=== PATIENT | male | born 1985 | race Caucasian/White ===

== ENCOUNTER 2017-10-22 12:05 | Emergency (ER) | payer OTHER ==
[~2017-10-22] VITALS: Ht 172.7 cm; Wt 81.7 kg
[~2017-10-22 12:05] MED LIST: ACETAMINOPHEN-1 EAC1 PO; CIPROFLOXACIN500 M1 PO; EC-NAPROSYN500 MG PO; ERY-TAB500 MG PO; NOHOMEMEDICATIONS; PHENERGAN 25 MG25 MG PO; VICODIN 5-5001 EACH PO
[2017-10-22 12:46] LABS: INFLUENZA A ANTIGEN None Detected (None Detect); INFLUENZA B ANTIGEN None Detected (None Detect)
[2017-10-22] MEDS ORDERED: PROMETHAZINE/C118 ML PO (14:13)
[2017-10-22] MEDS ORDERED: IBUPROFEN 800800 MG PO (14:13)
[2017-10-22 14:35] VITALS: BP 134/75
--- NOTE | 2017-10-24 10:19 | EKG ---
[place] [address] ELECTROCARDIOGRAM REPORT Name: TABATHA SALAZAR Room: [facility]#: [id number] Admission: 10/22/17 Attend Phys: Discharge: 10/22/17 Date of : 81 Report #: [id number] THIS REPORT FOR: //name// [facility] ED Test Date: 2017-10-22 Test Time: 12:10:40 Pat Name: TABATHA SALAZAR Department: Room: Gender: M [employer] Operator: ROXANNA : 1985 Requested By: Jennifer Escobedo Order Number: [id number] Neelima MD: Rodrigue Villatoro Measurements Intervals [place] Rate: 71 P: 44 [place]: 147 QRS: 42 QRSD: 105 T: 19 QT: 376 QTc: 409 Interpretive Statements Sinus rhythm Probable left atrial enlargement RSR' in V1 or V2, right VCD or RVH Baseline wander in lead(s) V2 No previous ECG available for comparison Electronically Signed On 10-24-2017 10:18:59 [employer]AME [employer]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
== END 2017-10-22 14:35 | disposition home or self-care (01) ==
LOC: M.ERS 12:05
PROVIDERS: Personal Emergency Response Attendant
DX: B34.9 Viral infection, unspecified (principal)

== ENCOUNTER 2021-04-24 19:48 | Emergency (ER) | payer OTHER ==
[~2021-04-24] VITALS: Ht 175.3 cm; Wt 81.7 kg
[~2021-04-24 19:48] MED LIST changes: +IBUPROFEN 800800 MG PO; +PROMETHAZINE/C118 ML PO
[2021-04-24 20:34] LABS: ABSOLUTE LYMPHOCYTES 1.4 thou/uL (0.8-5.3); ABSOLUTE MONOCYTES 0.7 thou/uL (0.0-1.2); BASOPHILS 0.9 %; EOSINOPHILS 0.8 %; HEMATOCRIT 39.1 % (42.0-52.0); HEMOGLOBIN 13.7 gm/dL (14.0-18.0); LYMPHOCYTES 27.3 %; MCH 31.2 pg (26.0-34.0); MCHC 35.1 g/dL (28.0-37.0); MCV 88.8 fL (80.0-100.0); MPV 8.4 fl. (7.2-11.1); NUCLEATED RBCS 0 /100WBC; PLATELET COUNT* 221 thou/uL (150-400); RBC 4.41 mil/uL (4.50-6.00); RDW-CV 13.3 % (10.5-14.5); WBC 5.2 thou/uL (4.0-11.0)
[2021-04-24 20:39] LABS: CALCIUM 8.3 mg/dL (8.5-10.1); CREATININE 1.2 mg/dL (0.6-1.3); POTASSIUM 3.6 mmol/L (3.5-5.1)
[2021-04-24 20:43] LABS: ALBUMIN 4.3 g/dL (3.4-5.0); TOTAL BILIRUBIN 0.4 mg/dL (<0.1-1.0); TOTAL PROTEIN 7.2 g/dL (6.4-8.2)
[2021-04-24 22:22] LABS: URINE BILIRUBIN NEGATIVE (Negative); URINE BLOOD NEGATIVE (Negative); URINE CLARITY CLEAR; URINE COLOR YELLOW; URINE GLUCOSE-RANDOM NEGATIVE (Negative); URINE KETONES NEGATIVE (Negative); URINE LEUKOCYTES-REFLEX NEGATIVE (Negative); URINE NITRITE-REFLEX NEGATIVE (Negative); URINE PROTEIN NEGATIVE (Negative); URINE SPECIFIC GRAVITY <= 1.005 (1.005-1.030); URINE UROBILINOGEN 0.2 E.U./dl (0.2-1.0)
[2021-04-24 22:23] VITALS: BP 121/77
--- NOTE | 2021-04-25 09:16 | EKG ---
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 [employer]: ID : [id number] Requested By: Jennifer Escobedo Order Number: [id number] MD: Andre Fraser Measurements Intervals [place] Rate: 70 P: 50 [place]: 146 QRS: 61 QRSD: 113 T: 14 QT: 387 QTc: 418 Interpretive Statements Sinus rhythm Ventricular premature complex Consider left atrial enlargement Borderline intraventricular conduction delay RSR' in V1 or V2, probably normal variant Borderline repolarization abnormality Minimal ST elevation, anterior leads Baseline wander in lead(s) V2,V3,V4,V5,V6 Compared to ECG 10/22/2017 12:10:40 Ventricular premature complex(es) now present ST (T wave) deviation now present Right ventricular hypertrophy no longer present Electronically Signed On 04-25-2021 9:16:45 CDT by Andre Fraser [email or web address] <ELECTRONICALLY SIGNED> By: Danny Fraser MD, [facility] 04/25/21915 52 52 Danny Fraser MD, [facility] /EPI
== END 2021-04-24 22:23 | disposition home or self-care (01) ==
LOC: M.ERS 19:48
PROVIDERS: Personal Emergency Response Attendant
DX: U07.1 COVID-19 (principal); Z88.0 Allergy status to penicillin